=== PATIENT | male | born 1955 | race Caucasian/White ===

== ENCOUNTER 2021-09-27 22:57 | Inpatient (IN) | payer MEDICAID ==
[~2021-09-27] VITALS: Ht 180.3 cm; Wt 90.9 kg
[2021-09-27 23:43] LABS: BASOPHILS % (AUTO) 0.4 % (0-1); EOSINOPHILS % (AUTO) 0.1 % (0-6); HEMATOCRIT 45.4 % (42.0-52.0); HEMOGLOBIN 14.3 g/dl (14.0-17.9); LYMPHOCYTES # (AUTO) 0.5 X10'3 (1.1-4.8); MEAN CORPUSCULAR HEMOGLOBIN 28.6 PG (27.0-31.0); MEAN CORPUSCULAR HGB CONC 31.5 g/dL (33.0-36.5); MEAN CORPUSCULAR VOLUME 90.8 FL (78-98); MEAN PLATELET VOLUME 9.6 FL (7.4-10.4); MONOCYTES # (AUTO) 1.2 X10'3 (0-0.9); NEUTROPHILS % (AUTO) 82.5 % (42-75); PLATELET COUNT 194 X10'3 (140-440); RED CELL DISTRIBUTION WIDTH 17.4 % (11.5-14.5); WHITE BLOOD COUNT 9.7 X10'3 (4.5-11.0)
[2021-09-28 00:09] LABS: ALANINE AMINOTRANSFERASE 72 U/L (12-78); ALBUMIN/GLOBULIN RATIO 0.8 (1.1-1.5); ALKALINE PHOSPHATASE 129 IU/L (46-116); ANION GAP 12 (8-16); ASPARTATE AMINO TRANSFERASE 75 U/L (10-37); BILIRUBIN,DIRECT 0.8 MG/DL (0-0.3); BILIRUBIN,TOTAL 1.3 MG/DL (0.1-1.0); BLOOD UREA NITROGEN 58 MG/DL (7-18); CHLORIDE 100 MMOL/L (99-107); CREATININE 1.81 MG/DL (0.60-1.10); GLUCOSE 397 MG/DL (70-104); LIPASE < 50 U/L (73-393); POTASSIUM 5.4 MMOL/L (3.5-5.1); SODIUM 136 MMOL/L (135-145); TOTAL CARBON DIOXIDE 24.5 MMOL/L (24-32); eGFR 38 ML/MIN
[2021-09-28 00:15] LABS: CALCIUM 8.8 MG/DL (8.5-10.1)
[2021-09-28] MEDS ORDERED: cefepime 2g/NS 100ml ADVANTAGE 100 ML IV SCH (00:30)
[2021-09-28] MEDS ORDERED: normal saline 1000ml 1,000 ML IV ONE ×3 (00:30→01:45)
[2021-09-28] MEDS ORDERED: iohexol 300mg/ml 100ml inj. ONE (00:34)
[2021-09-28] MEDS ORDERED: vancomycin/NS 1 GM ADD-VANTAGE 250 ML IV ONE (00:35)
[2021-09-28] MEDS ORDERED: LIDOcaine 2% 10ml TOPICAL JELLY (Urojet) MM ONE (01:15)
[2021-09-28] MEDS ORDERED: furosemide 10 MG/1 ML 10ml inj IV ONE (01:45)
[2021-09-28] MEDS ORDERED: albuterol 2.5 MG/3 ML nebule NEB ONE (01:50)
[2021-09-28] MEDS ORDERED: aspirin 325mg tablet PO ONE (01:50)
--- NOTE | 2021-09-28 03:27 | NUR ---
Patient yelling and screaming that he want the rails down on his gurney, I have explained that is not safe as he already fell out of bed at home and couldn't get up. I advised him we would get him a hospital bed so he could be more comfortably and he demanded to speak with the supervisor [employer]. I had Suzy Yung seferino him.
[2021-09-28 03:28] LABS: CLARITY,URINE SLIGHTLY CLOUDY (Clear); GLUCOSE, URINE NEGATIVE (Neg); KETONES,URINE NEGATIVE (Neg); LEUKOCYTE ESTERASE ,URINE NEGATIVE (Neg); NITRITES, URINE NEGATIVE (Neg); OCCULT BLOOD,URINE MODERATE (Neg); PROTEIN,URINE NEGATIVE (Neg); UROBILINOGEN,URINE 0.2 E.U/dL (0.2-1.0)
[2021-09-28 03:43] LABS: COLOR,URINE STRAW (Yellow); UA COLLECTION TYPE FOLEY CATH
[2021-09-28 03:44] LABS: WBC,URINE 0-4 /HPF (0-4)
[2021-09-28 03:45] LABS: BACTERIA,URINE FEW /HPF (Neg); MUCUS STRANDS FEW /LPF (Neg); SQUAMOUS EPITHELIAL CELL,UR FEW /LPF (FEW)
[2021-09-28] MEDS ORDERED: magnesium 2GM in 50ml NS 50 ML IV PRN (04:00)
[2021-09-28] MEDS ORDERED: potassium CL 10mEq/100ml bag 100 ML IV PRN (04:00)
[2021-09-28] MEDS ORDERED: glucagon, human recombinant 1mg kit SUBCUT PRN (04:00)
[2021-09-28] MEDS ORDERED: dextrose 50%-water 50ml dispensing syringe IV PRN ×2 (04:00)
[2021-09-28] MEDS ORDERED: acetaminophen 325mg tablet PO PRN (04:00)
[2021-09-28] MEDS ORDERED: PERFLUTREN PROTEIN-A MICROSPHR (Optison) 0.22 MG/ML 3ML VIAL IV PRN (04:00)
[2021-09-28] MEDS ORDERED: dextrose ORAL solution 15 GM/59 ML bottle PO PRN ×2 (04:00)
[2021-09-28] MEDS ORDERED: magnesium 4gm in 100ml NS 100 ML IV PRN (04:00)
[2021-09-28] MEDS ORDERED: magnesium Cl slow-release 64mg tablet PO PRN (04:00)
[2021-09-28] MEDS ORDERED: mag hydrox/Alum hydrox/simeth 30ml oral suspension PO PRN (04:00)
[2021-09-28] MEDS ORDERED: potassium Cl 20 mEq SR tablet PO PRN ×2 (04:00)
[2021-09-28] MEDS ORDERED: MESSAGE TO PHARMACY PO ONE (04:00)
[2021-09-28] MEDS ORDERED: ondansetron/PF 4mg/2ml inj IV PRN (04:00)
[2021-09-28] MEDS ORDERED: magnesium hydroxide 30ml (MOM) UD suspension PO PRN (04:00)
[2021-09-28 05:15] LABS: HEMOGLOBIN A1C 8.7 % (4.5-6.2)
[2021-09-28 05:22] LABS: MAGNESIUM 2.1 MG/DL (1.5-2.4); POTASSIUM 4.8 MMOL/L (3.5-5.1)
--- NOTE | 2021-09-28 06:37 | NUR ---
patient received in a hospital bed awake,on a venturi mask.We will monitor.
[2021-09-28] MEDS: docusate sod 100mg capsule PO SCH ×2 (08:00→20:03)
[2021-09-28] MEDS: K and/or MAG REPLACEMENT MC SCH ×2 (08:00→19:55)
--- NOTE | 2021-09-28 08:30 | NUR ---
paitent repositoned in bed.
[2021-09-28] MEDS: cephalexin 250mg capsule PO SCH ×4 (08:46→20:15)
[2021-09-28] MEDS: carvedilol 6.25mg tablet PO SCH ×2 (08:47→20:03)
[2021-09-28] MEDS: heparin, porcine 5000 units/ml vial SQ SCH ×2 (08:48→20:07)
--- NOTE | 2021-09-28 09:00 | NUR ---
patient assisted with breakfast, HOB elevated.
[2021-09-28] MEDS: bumetanide 0.25mg/ml 4ml vial IV SCH (09:06)
--- NOTE | 2021-09-28 09:20 | NUR ---
placed patient on a nc 5L.
--- NOTE | 2021-09-28 09:34 | NUR ---
patient eating breakfast.tolerating 5Lnc sating 97%.
--- NOTE | 2021-09-28 09:44 | NUR ---
RN noted patient's cannula off,instructed not to take it off sating 80's.
--- NOTE | 2021-09-28 10:08 | NUR ---
Harriet/kemi called [phone].
[2021-09-28] MEDS: insulin Lispro (HumaLOG) vial - multi-dose SQ SCH ×2 (10:19→19:32)
--- NOTE | 2021-09-28 10:21 | NUR ---
echo at bedside, saturation 97% on 5 L nc.Instructed not to take off cannula.
--- NOTE | 2021-09-28 10:33 | NUR ---
1700ml yellow urine out from spence cath.call light within reach.
[2021-09-28] MEDS ORDERED: PIOG30TA71 PO (11:11)
[2021-09-28] MEDS ORDERED: LISI5TAB22 PO (11:11)
[2021-09-28] MEDS ORDERED: INSU100I31 SQ (11:11)
[2021-09-28] MEDS ORDERED: METF-1203 PO (11:11)
[2021-09-28] MEDS ORDERED: ZAR2.5T PO (11:11)
[2021-09-28] MEDS ORDERED: CARV6.253 PO (11:11)
[2021-09-28 11:45] VITALS: BP 119/81
[2021-09-28 15:00] VITALS: BP 111/84
--- NOTE | 2021-09-28 18:31 | NUR ---
Problems reprioritized. Patient report given, questions answered & plan of care reviewed with CAROLE LEON.
[2021-09-28 20:00] VITALS: BP 114/62
[2021-09-28] MEDS ORDERED: carvedilol 6.25mg tablet PO SCH (20:00)
[2021-09-28] MEDS: lactobacillus rhamnosus 10,000 MMU CELLS/CAPSULE PO SCH (20:03)
[2021-09-28 22:00] VITALS: BP 128/90
[2021-09-29] VITALS (12 sets, daily range): BP systolic 94–131; BP diastolic 62–94
[2021-09-29] MEDS ORDERED: furosemide 40mg/4ml inj IV ONE (01:20)
[2021-09-29] MEDS ORDERED: furosemide 40mg/4ml inj ONE (01:29)
[2021-09-29] MEDS ORDERED: LORazepam 2 mg/ml vial IV ONE (01:50)
[2021-09-29] MEDS: morphine 2 MG/ML inj. syringe IV PRN ×2 (02:19→10:38)
[2021-09-29 02:40] LABS: BASOPHILS % (AUTO) 0.5 % (0-1); EOSINOPHILS # (AUTO) 0.1 X10'3 (0-0.9); EOSINOPHILS % (AUTO) 0.9 % (0-6); HEMATOCRIT 44.3 % (42.0-52.0); HEMOGLOBIN 14.1 g/dl (14.0-17.9); LYMPHOCYTES # (AUTO) 0.8 X10'3 (1.1-4.8); LYMPHOCYTES % (AUTO) 8.2 % (21-51); MEAN CORPUSCULAR HEMOGLOBIN 28.8 PG (27.0-31.0); MEAN CORPUSCULAR HGB CONC 31.9 g/dL (33.0-36.5); MEAN CORPUSCULAR VOLUME 90.3 FL (78-98); MEAN PLATELET VOLUME 9.8 FL (7.4-10.4); MONOCYTES # (AUTO) 1.3 X10'3 (0-0.9); NEUTROPHILS # (AUTO) 7.5 X10'3 (1.8-7.7); NEUTROPHILS % (AUTO) 77.4 % (42-75); PLATELET COUNT 146 X10'3 (140-440); RED CELL DISTRIBUTION WIDTH 16.9 % (11.5-14.5); WHITE BLOOD COUNT 9.7 X10'3 (4.5-11.0)
[2021-09-29 02:55] LABS: ALANINE AMINOTRANSFERASE 67 U/L (12-78); ALBUMIN 2.7 G/DL (3.4-5.0); ALBUMIN/GLOBULIN RATIO 0.7 (1.1-1.5); ALKALINE PHOSPHATASE 102 IU/L (46-116); ANION GAP 11 (8-16); ASPARTATE AMINO TRANSFERASE 60 U/L (10-37); BLOOD UREA NITROGEN 64 MG/DL (7-18); CALCIUM 8.4 MG/DL (8.5-10.1); CHLORIDE 105 MMOL/L (99-107); GLUCOSE 120 MG/DL (70-104); SODIUM 141 MMOL/L (135-145); TOTAL CARBON DIOXIDE 25.2 MMOL/L (24-32); TOTAL PROTEIN 6.6 G/DL (6.4-8.2); eGFR 44 ML/MIN
--- NOTE | 2021-09-29 03:01 | NUR ---
Patient yelling out loud complaining of scrotol pain .Patient assesed and found to have a increasingly large scrotum that looks like it's about to rupture.Vital signs stable.Dr Faith was called and eventually came to the floor and ordered lasix 40 Meq Iv in which patient recieved at 01:30 am.Patient bladder was palpated and was found to be full but unable to void and uncomfortable. The ICU charge nurse was called and assessed patient with orders given for stat labs and spoke with DR. Faith about ordering urology consult.According to Dr. Faith give Morphine 2mg iv now and repeat in 4 hours. Patient recieved first dose of morphine at 02:19. Patient is being monitored q15 minutes.
[2021-09-29 03:02] LABS: MAGNESIUM 2.1 MG/DL (1.5-2.4); POTASSIUM 5.4 MMOL/L (3.5-5.1)
[2021-09-29 05:47] LABS: ABG BASE EXCESS -3.2 mmol/L (-2.0-2.0); ABG HCO3 21.3 mmol/L (22.0-26.0); ABG OXYGEN SATURATION 99.9 % (94-97); ABG PCO2 (T) 34.3 mmHg (35.0-48.0); ABG PO2 (T) 502.8 mmHg (75.0-100.0); ALLEN'S TEST POSITIVE; FCOHb 0.9 % (0.0-3.9); FMetHb 0.3 % (0.0-1.5); FO2Hb 98.7 % (94-97); PATIENT TEMPERATURE 35.5; TOTAL HEMOGLOBIN 14.6 G/dl (14.0-18.0)
--- NOTE | 2021-09-29 06:47 | NUR ---
Problems reprioritized. Patient report given, questions answered & plan of care reviewed with
[2021-09-29] MEDS: K and/or MAG REPLACEMENT MC SCH ×2 (08:00→20:00)
[2021-09-29] MEDS: docusate sod 100mg capsule PO SCH ×2 (08:00→20:00)
[2021-09-29] MEDS: mineral oil/petrolatum, white cream 113gm jar TP SCH (08:00)
[2021-09-29] MEDS ORDERED: metolazone 2.5mg tablet PO SCH (08:00)
--- NOTE | 2021-09-29 10:03 | NUR ---
PAGER ID: [phone] MESSAGE: Room 309. Rashi Monroe. Pt's niece that works here is in the room and would like to talk to you. Pt wants to leave. Please assist. Thanks, Terri [phone]
[2021-09-29] MEDS: bumetanide 0.25mg/ml 4ml vial IV SCH ×2 (10:37→20:55)
[2021-09-29] MEDS: heparin, porcine 5000 units/ml vial SQ SCH ×2 (10:43→20:50)
[2021-09-29] MEDS: lisinopril 5mg tablet PO SCH (10:44)
[2021-09-29] MEDS: carvedilol 6.25mg tablet PO SCH ×2 (10:44→20:53)
[2021-09-29] MEDS: lactobacillus rhamnosus 10,000 MMU CELLS/CAPSULE PO SCH ×2 (10:46→20:53)
--- NOTE | 2021-09-29 11:23 | NUR ---
Diabetes consult: Noted A1C 8.7 upon assessment pt appeared to be in pain/distress w/ RN at bedside. Written DM education w/ RD contact info placed in pt chart Addendum: 09/29/21 at [address] Amended: Links added.
[2021-09-29] MEDS: cephalexin 500mg capsule PO SCH ×3 (14:52→20:53)
[2021-09-29] MEDS: insulin Lispro (HumaLOG) vial - multi-dose SQ SCH ×2 (14:57→19:18)
[2021-09-29] MEDS: DOBUTamine 2000 MCG/250ML BAG IV SCH (15:39)
--- NOTE | 2021-09-29 18:39 | NUR ---
Problems reprioritized. Patient report given, questions answered & plan of care reviewed with CAROLE Montgomery.
[2021-09-29] MEDS ORDERED: sodium polystyrene sulfonate 15gm/60ml oral suspension PO ONE (21:25)
[2021-09-30] VITALS (10 sets, daily range): BP systolic 101–125; BP diastolic 58–86
[2021-09-30 06:36] LABS: BASOPHILS % (AUTO) 0.4 % (0-1); EOSINOPHILS # (AUTO) 0.1 X10'3 (0-0.9); EOSINOPHILS % (AUTO) 1.2 % (0-6); HEMATOCRIT 40.9 % (42.0-52.0); HEMOGLOBIN 13.3 g/dl (14.0-17.9); LYMPHOCYTES # (AUTO) 0.7 X10'3 (1.1-4.8); LYMPHOCYTES % (AUTO) 9.2 % (21-51); MEAN CORPUSCULAR HEMOGLOBIN 28.8 PG (27.0-31.0); MEAN CORPUSCULAR HGB CONC 32.4 g/dL (33.0-36.5); MEAN PLATELET VOLUME 9.1 FL (7.4-10.4); MONOCYTES # (AUTO) 0.7 X10'3 (0-0.9); MONOCYTES % (AUTO) 10.1 % (2-12); NEUTROPHILS # (AUTO) 5.7 X10'3 (1.8-7.7); NEUTROPHILS % (AUTO) 79.1 % (42-75); PLATELET COUNT 157 X10'3 (140-440); RED CELL DISTRIBUTION WIDTH 16.7 % (11.5-14.5); WHITE BLOOD COUNT 7.2 X10'3 (4.5-11.0)
[2021-09-30 06:57] LABS: ALANINE AMINOTRANSFERASE 51 U/L (12-78); ALBUMIN 2.3 G/DL (3.4-5.0); ALBUMIN/GLOBULIN RATIO 0.7 (1.1-1.5); ALKALINE PHOSPHATASE 91 IU/L (46-116); ANION GAP 9 (8-16); ASPARTATE AMINO TRANSFERASE 47 U/L (10-37); BILIRUBIN,TOTAL 0.9 MG/DL (0.1-1.0); BLOOD UREA NITROGEN 64 MG/DL (7-18); BUN/CREATININE RATIO 45.4 (5.4-32.0); CHLORIDE 107 MMOL/L (99-107); CREATININE 1.41 MG/DL (0.60-1.10); GLUCOSE 87 MG/DL (70-104); POTASSIUM 3.9 MMOL/L (3.5-5.1); SODIUM 142 MMOL/L (135-145); TOTAL CARBON DIOXIDE 25.7 MMOL/L (24-32); TOTAL PROTEIN 5.8 G/DL (6.4-8.2); eGFR 51 ML/MIN
--- NOTE | 2021-09-30 07:23 | NUR ---
PAGER ID: [phone] MESSAGE: Room 309. Rashi Monroe. Please come sign pts PICC consent. Thanks, Terri [phone]
[2021-09-30] MEDS: K and/or MAG REPLACEMENT MC SCH ×2 (08:00→19:23)
[2021-09-30] MEDS: docusate sod 100mg capsule PO SCH ×2 (08:00→20:44)
[2021-09-30] MEDS: heparin, porcine 5000 units/ml vial SQ SCH ×2 (08:36→21:06)
[2021-09-30] MEDS: bumetanide 0.25mg/ml 4ml vial IV SCH ×2 (08:36→19:21)
[2021-09-30] MEDS: mineral oil/petrolatum, white cream 113gm jar TP SCH (08:36)
[2021-09-30] MEDS: cephalexin 500mg capsule PO SCH ×4 (08:37→21:06)
[2021-09-30] MEDS: metolazone 2.5mg tablet PO SCH (08:37)
[2021-09-30] MEDS: carvedilol 6.25mg tablet PO SCH ×2 (08:37→20:00)
[2021-09-30] MEDS: lactobacillus rhamnosus 10,000 MMU CELLS/CAPSULE PO SCH ×2 (08:37→20:44)
[2021-09-30] MEDS: lisinopril 5mg tablet PO SCH (08:37)
[2021-09-30] MEDS: insulin Lispro (HumaLOG) vial - multi-dose SQ SCH ×2 (08:50→14:15)
[2021-09-30] MEDS: morphine 2 MG/ML inj. syringe IV PRN (14:11)
--- NOTE | 2021-09-30 17:29 | NUR ---
Order from Dr Vasquez 2L FR, arterial ultrasound with segmental pressures, B/A ratio, Venous ultrasound for DVT. CRN entered orders.
--- NOTE | 2021-09-30 17:55 | NUR ---
reposition throughout shift Pt repositions self. He is able to make his needs be known. Call light and personal belongings within reach.
--- NOTE | 2021-09-30 18:38 | NUR ---
Problems reprioritized. Patient report given, questions answered & plan of care reviewed with CAROLE Spaulding.
--- NOTE | 2021-09-30 19:00 | NUR ---
Patient in room MED 309. I have received report from KAYLAN LAM and had the opportunity to ask questions and assume patient care.
--- NOTE | 2021-09-30 19:09 | NUR ---
pATIENT FELL, FOUND DOWN BY PRIMARY RN, VS -HR 66, O2 100, RR 17, BP 119/75, PATIENT REPORTS HITTING BACK OF HEAD, PAIN 8/10 REPORTED BY PATIENT. PRIMARY RN NOTE TO FOLLOW, CALLING MD FOR FURTHER ORDERS. MIKHAIL LAM Addendum: 09/30/21 at 1928 by Chelly Watkins RN DISREGARD, INCORRECT PATIENT. MIKHAIL LAM
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
[2021-10-01] VITALS (12 sets, daily range): BP systolic 117–152; BP diastolic 60–99
[2021-10-01] MEDS ORDERED: diphenhydrAMINE 50 mg/ml inj IV PRN (01:25)
--- NOTE | 2021-10-01 02:00 | NUR ---
[ATIENT PULLED TELE MONITOR OFF-WENT TO REPLACE, FOUND PATIENT TUGGING AT PICC DRESSING-NO DAMAGE TO PICC-OBTAINED ORDER FOR RESTRAINTS. PATIENT CONTINUES TO PULL ON LINES, IN SLEEP AND WHILE AWAKE-ACUTE CONFUSION, MD ORDER FOR RESTRAINTS PLACED TO MAINTAIN IV PICC/PATIENT HAS DOBUTAMINE RUNNING. MIKHAIL
[2021-10-01] MEDS ORDERED: morphine 2 MG/ML inj. syringe IV PRN ×2 (02:55→11:30)
[2021-10-01] MEDS ORDERED: LORazepam 2 mg/ml vial IV PRN (04:45)
[2021-10-01 05:21] LABS: BASOPHILS % (AUTO) 0.2 % (0-1); EOSINOPHILS # (AUTO) 0.1 X10'3 (0-0.9); EOSINOPHILS % (AUTO) 1.2 % (0-6); HEMATOCRIT 40.9 % (42.0-52.0); HEMOGLOBIN 13.3 g/dl (14.0-17.9); LYMPHOCYTES # (AUTO) 0.6 X10'3 (1.1-4.8); LYMPHOCYTES % (AUTO) 7.4 % (21-51); MEAN CORPUSCULAR HEMOGLOBIN 28.8 PG (27.0-31.0); MEAN CORPUSCULAR HGB CONC 32.6 g/dL (33.0-36.5); MEAN CORPUSCULAR VOLUME 88.4 FL (78-98); MEAN PLATELET VOLUME 9.2 FL (7.4-10.4); MONOCYTES # (AUTO) 0.8 X10'3 (0-0.9); MONOCYTES % (AUTO) 10.5 % (2-12); NEUTROPHILS % (AUTO) 80.7 % (42-75); PLATELET COUNT 164 X10'3 (140-440); RED BLOOD COUNT 4.63 X10'6 (4.70-6.10); RED CELL DISTRIBUTION WIDTH 16.7 % (11.5-14.5); WHITE BLOOD COUNT 7.4 X10'3 (4.5-11.0)
[2021-10-01 05:27] LABS: ALANINE AMINOTRANSFERASE 52 U/L (12-78); ALBUMIN 2.3 G/DL (3.4-5.0); ALBUMIN/GLOBULIN RATIO 0.6 (1.1-1.5); ALKALINE PHOSPHATASE 109 IU/L (46-116); ANION GAP 7 (8-16); ASPARTATE AMINO TRANSFERASE 47 U/L (10-37); BILIRUBIN,TOTAL 0.8 MG/DL (0.1-1.0); BLOOD UREA NITROGEN 61 MG/DL (7-18); BUN/CREATININE RATIO 38.9 (5.4-32.0); CALCIUM 7.9 MG/DL (8.5-10.1); CHLORIDE 104 MMOL/L (99-107); CREATININE 1.57 MG/DL (0.60-1.10); GLUCOSE 295 MG/DL (70-104); POTASSIUM 3.7 MMOL/L (3.5-5.1); SODIUM 141 MMOL/L (135-145); TOTAL CARBON DIOXIDE 30.3 MMOL/L (24-32); TOTAL PROTEIN 5.9 G/DL (6.4-8.2); eGFR 45 ML/MIN
--- NOTE | 2021-10-01 06:11 | NUR ---
CRITICAL K 6.4-BARGAN ORDERED REPLACEMENT PROTOCOL FOR POTASSIUM; SEE EMAR
--- NOTE | 2021-10-01 06:12 | NUR ---
Problems reprioritized. Patient report given, questions answered & plan of care reviewed with Zelalem LAM.
[2021-10-01] MEDS: K and/or MAG REPLACEMENT MC SCH ×2 (08:00→19:22)
[2021-10-01] MEDS: lactobacillus rhamnosus 10,000 MMU CELLS/CAPSULE PO SCH ×2 (08:00→19:17)
[2021-10-01] MEDS: cephalexin 500mg capsule PO SCH ×4 (08:00→19:17)
[2021-10-01] MEDS: lisinopril 5mg tablet PO SCH (08:00)
[2021-10-01] MEDS: mineral oil/petrolatum, white cream 113gm jar TP SCH (08:00)
[2021-10-01] MEDS: metolazone 2.5mg tablet PO SCH (08:00)
[2021-10-01] MEDS: docusate sod 100mg capsule PO SCH ×2 (08:00→19:22)
[2021-10-01] MEDS: carvedilol 6.25mg tablet PO SCH ×3 (08:00→19:17)
[2021-10-01] MEDS ORDERED: haloperidol lactate 5mg/ml inj IM ONE (08:05)
[2021-10-01] MEDS ORDERED: morphine 2 MG/ML inj. syringe IV ONE (09:50)
--- NOTE | 2021-10-01 10:02 | NUR ---
Family is in the room with the patient. Restraint are off.
[2021-10-01] MEDS: heparin, porcine 5000 units/ml vial SQ SCH ×2 (10:23→19:10)
[2021-10-01] MEDS: bumetanide 0.25mg/ml 4ml vial IV SCH ×2 (10:24→19:18)
[2021-10-01] MEDS ORDERED: insulin Lispro (HumaLOG) vial - multi-dose SQ ONE (10:30)
[2021-10-01 10:55] LABS: ABG HCO3 27.8 mmol/L (22.0-26.0); ABG OXYGEN SATURATION 88.4 % (94-97); ABG PCO2 (T) 43.2 mmHg (35.0-48.0); ABG PO2 (T) 53.4 mmHg (75.0-100.0); ALLEN'S TEST POSITIVE; FCOHb 1.3 % (0.0-3.9); FLOW 3 L/min; FMetHb 0.2 % (0.0-1.5); FO2Hb 87.1 % (94-97); TOTAL HEMOGLOBIN 14.9 G/dl (14.0-18.0)
--- NOTE | 2021-10-01 11:19 | NUR ---
Sister and krunal in room with patient. Dr Abad in room as well. Both famioly members DO NOT want Bipap anymore. They do want morphine for pain if needed. Dr Abad educated on both issues as it contraindicates what both Dr Abad and Dr Vasquez has ordered. They both verbalized understanding and still wants what they want. Nesherie and sister both wants to be called EVERYTIME that something happens regardless of the time. Jenniffer reinterated needing Bipap at [facility] - both refused. Pt is still trashing and mumbling. They took the restraints off and are holding his hands. Order for sitter received.
[2021-10-01] MEDS: insulin Lispro (HumaLOG) vial - multi-dose SQ SCH ×2 (14:15→19:13)
[2021-10-01] MEDS: DOBUTamine 2000 MCG/250ML BAG IV SCH (14:56)
--- NOTE | 2021-10-01 17:00 | NUR ---
Pt ate all of his lunch around 1630 when he came to, 1700 blood sugar check was done after he ate his late lunch.
--- NOTE | 2021-10-01 17:11 | NUR ---
Pt has been trashing and grunting out loud all day. He started out with restraints and when the family got here we took them off per their request. They have stayed in the room all day with him. About 1600 today he came out of his confused state and is now lucid. He is hungry and thirsty and wants to eat and figure out what the family is going to do about his "bad episodes". I was able to give him his 1700 keflex po. Pt is refusing tele leads and he will use his nasal cannula when he feels like it regardless of what his O2 says. He pulled all leads and O2 monitoring off. Pt is refusing. Pt and family has been educated on above multiple times - they all verbalized understanding.
--- NOTE | 2021-10-01 17:40 | NUR ---
Per Dr Vasquez - alejandra 0800 coreg now ([id number]). do not need to delay pm coreg.
--- NOTE | 2021-10-01 17:56 | NUR ---
Patient in room MED 309. I have received report from KAYLAN LAM and had the opportunity to ask questions and assume patient care.
--- NOTE | 2021-10-01 18:00 | NUR ---
reposition throughout shift Pt has been moving around all shift. Family has been in the room since 1000. Call light and personal belongings within reach.
--- NOTE | 2021-10-01 19:09 | NUR ---
During day shift Dr Abad entered a [facility] nursing note stating NOT to give any sedating medication - she then entered a 1mg morphine for severe pain only. She advised only to give when the pt is in severe pain.
--- NOTE | 2021-10-01 19:15 | NUR ---
Since the patient is awake now the family want to hold off on comfort care.
--- NOTE | 2021-10-01 19:15 | NUR ---
Problems reprioritized. Patient report given, questions answered & plan of care reviewed with CAROLE Spaulding.
[2021-10-01] MEDS: insulin glargine (Lantus) pen - multi-dose SQ SCH (21:46)
[2021-10-02] VITALS (10 sets, daily range): BP systolic 91–147; BP diastolic 55–90
--- NOTE | 2021-10-02 06:04 | NUR ---
Problems reprioritized. Patient report given, questions answered & plan of care reviewed with KITA LAM.
--- NOTE | 2021-10-02 06:06 | NUR ---
Problems reprioritized. Patient report given, questions answered & plan of care reviewed with Summer LAM.
--- NOTE | 2021-10-02 07:00 | NUR ---
Patient in room MED 309. I have received report from CAROLE HONEYCUTT, and had the opportunity to ask questions and assume patient care.
[2021-10-02 07:08] LABS: BASOPHILS % (AUTO) 0.3 % (0-1); EOSINOPHILS # (AUTO) 0.1 X10'3 (0-0.9); EOSINOPHILS % (AUTO) 1.1 % (0-6); HEMATOCRIT 41.1 % (42.0-52.0); HEMOGLOBIN 13.5 g/dl (14.0-17.9); LYMPHOCYTES # (AUTO) 0.5 X10'3 (1.1-4.8); LYMPHOCYTES % (AUTO) 6.4 % (21-51); MEAN CORPUSCULAR HEMOGLOBIN 28.6 PG (27.0-31.0); MEAN CORPUSCULAR HGB CONC 32.8 g/dL (33.0-36.5); MEAN CORPUSCULAR VOLUME 87.3 FL (78-98); MONOCYTES # (AUTO) 0.9 X10'3 (0-0.9); MONOCYTES % (AUTO) 11.8 % (2-12); NEUTROPHILS # (AUTO) 6.3 X10'3 (1.8-7.7); NEUTROPHILS % (AUTO) 80.4 % (42-75); PLATELET COUNT 167 X10'3 (140-440); RED BLOOD COUNT 4.71 X10'6 (4.70-6.10); RED CELL DISTRIBUTION WIDTH 16.9 % (11.5-14.5); WHITE BLOOD COUNT 7.9 X10'3 (4.5-11.0)
[2021-10-02 07:11] LABS: ALANINE AMINOTRANSFERASE 45 U/L (12-78); ALBUMIN 2.4 G/DL (3.4-5.0); ALBUMIN/GLOBULIN RATIO 0.7 (1.1-1.5); ALKALINE PHOSPHATASE 82 IU/L (46-116); ANION GAP 7 (8-16); ASPARTATE AMINO TRANSFERASE 56 U/L (10-37); BLOOD UREA NITROGEN 47 MG/DL (7-18); BUN/CREATININE RATIO 44.3 (5.4-32.0); CHLORIDE 99 MMOL/L (99-107); CREATININE 1.06 MG/DL (0.60-1.10); SODIUM 139 MMOL/L (135-145); eGFR 70 ML/MIN
[2021-10-02 07:13] LABS: GLUCOSE 48 MG/DL (70-104)
--- NOTE | 2021-10-02 07:16 | NUR ---
PAGE SENT PAGER ID: [phone] MESSAGE: 309, TREV KENNEDY, CRITICAL LABS: BLOOD GLUCOSE-48, K-3.0. THANK YOU, KITA [id number]
[2021-10-02] MEDS: K and/or MAG REPLACEMENT MC SCH ×3 (08:00→20:00)
[2021-10-02] MEDS: mineral oil/petrolatum, white cream 113gm jar TP SCH (08:00)
[2021-10-02] MEDS: docusate sod 100mg capsule PO SCH ×2 (08:00→18:49)
[2021-10-02] MEDS: bumetanide 0.25mg/ml 4ml vial IV SCH ×2 (09:41→18:40)
[2021-10-02] MEDS: metolazone 2.5mg tablet PO SCH (09:48)
[2021-10-02] MEDS: carvedilol 6.25mg tablet PO SCH ×2 (09:49→18:46)
[2021-10-02] MEDS: lisinopril 5mg tablet PO SCH (09:52)
[2021-10-02] MEDS: lactobacillus rhamnosus 10,000 MMU CELLS/CAPSULE PO SCH ×2 (09:52→20:00)
[2021-10-02] MEDS: cephalexin 500mg capsule PO SCH ×4 (09:53→18:39)
[2021-10-02] MEDS: heparin, porcine 5000 units/ml vial SQ SCH ×2 (09:56→18:46)
[2021-10-02] MEDS: insulin Lispro (HumaLOG) vial - multi-dose SQ SCH ×3 (10:05→18:39)
--- NOTE | 2021-10-02 14:03 | NUR ---
PAGE SENT PAGER ID: [phone] MESSAGE: 309, TREV KENNEDY, NO PRN K REPLACEMENT. PT'S K - 3. ORDERS PLEASE? THANK YOU, KITA
--- NOTE | 2021-10-02 16:02 | NUR ---
PAGE SENT PAGER ID: [phone] MESSAGE: 309, TREV KENNEDY, PT'S POTASSIUM IS 3 AND HE DOESN'T HAVE ANY K REPLACEMENT. MAY WE HAVE A PRN K? THANK YOU, KITA Kilgore [phone].
[2021-10-02] MEDS ORDERED: potassium Cl 20 mEq SR tablet PO PRN ×2 (16:05)
[2021-10-02] MEDS ORDERED: magnesium Cl slow-release 64mg tablet PO PRN (16:05)
[2021-10-02] MEDS ORDERED: magnesium 4gm in 100ml NS 100 ML IV PRN (16:05)
[2021-10-02] MEDS ORDERED: potassium CL 10mEq/100ml bag 100 ML IV PRN (16:05)
[2021-10-02] MEDS ORDERED: magnesium 2GM in 50ml NS 50 ML IV PRN (16:05)
--- NOTE | 2021-10-02 18:20 | NUR ---
Patient in room MED 309. I have received report from KITA LAM and had the opportunity to ask questions and assume patient care.
--- NOTE | 2021-10-02 18:28 | NUR ---
Problems reprioritized. Patient report given, questions answered & plan of care reviewed with CAROLE HONEYCUTT.
[2021-10-02] MEDS: insulin glargine (Lantus) pen - multi-dose SQ SCH (21:14)
[2021-10-03] VITALS: BP 103/56
[2021-10-03 02:00] VITALS: BP 94/64
[2021-10-03 03:25] LABS: BASOPHILS % (AUTO) 0.5 % (0-1); EOSINOPHILS # (AUTO) 0.2 X10'3 (0-0.9); EOSINOPHILS % (AUTO) 2.1 % (0-6); HEMATOCRIT 39.5 % (42.0-52.0); HEMOGLOBIN 12.7 g/dl (14.0-17.9); LYMPHOCYTES # (AUTO) 0.6 X10'3 (1.1-4.8); LYMPHOCYTES % (AUTO) 7.4 % (21-51); MEAN CORPUSCULAR HGB CONC 32.1 g/dL (33.0-36.5); MEAN CORPUSCULAR VOLUME 87.3 FL (78-98); MONOCYTES # (AUTO) 1.1 X10'3 (0-0.9); MONOCYTES % (AUTO) 14.4 % (2-12); NEUTROPHILS % (AUTO) 75.6 % (42-75); PLATELET COUNT 154 X10'3 (140-440); RED BLOOD COUNT 4.52 X10'6 (4.70-6.10); RED CELL DISTRIBUTION WIDTH 16.5 % (11.5-14.5); WHITE BLOOD COUNT 7.9 X10'3 (4.5-11.0)
[2021-10-03 03:52] LABS: ALANINE AMINOTRANSFERASE 44 U/L (12-78); ALBUMIN 2.2 G/DL (3.4-5.0); ALBUMIN/GLOBULIN RATIO 0.7 (1.1-1.5); ALKALINE PHOSPHATASE 98 IU/L (46-116); ANION GAP 6 (8-16); ASPARTATE AMINO TRANSFERASE 48 U/L (10-37); BILIRUBIN,TOTAL 0.7 MG/DL (0.1-1.0); BLOOD UREA NITROGEN 46 MG/DL (7-18); BUN/CREATININE RATIO 36.8 (5.4-32.0); CALCIUM 7.8 MG/DL (8.5-10.1); CHLORIDE 96 MMOL/L (99-107); CREATININE 1.25 MG/DL (0.60-1.10); GLUCOSE 178 MG/DL (70-104); POTASSIUM 3.7 MMOL/L (3.5-5.1); SODIUM 139 MMOL/L (135-145); TOTAL CARBON DIOXIDE 36.6 MMOL/L (24-32); TOTAL PROTEIN 5.5 G/DL (6.4-8.2); eGFR 58 ML/MIN
[2021-10-03 04:00] VITALS: BP 112/61
--- NOTE | 2021-10-03 05:24 | NUR ---
Problems reprioritized. Patient report given, questions answered & plan of care reviewed with BRIAN LAM.
--- NOTE | 2021-10-03 05:30 | NUR ---
Patient in room PCU 3023. I have received report from Chelly LAM and had the opportunity to ask questions and assume patient care.
--- NOTE | 2021-10-03 05:55 | NUR ---
Pt. arrived to room 3023C in bed fr/ACCE. Oriented to room, attendant, and surroundings. Pt is alert and appropriate. Dobutamine infusing as ordered. This nurse agrees w/assessment performed by ACCE RNChelly.
[2021-10-03 06:00] VITALS: BP 98/57
--- NOTE | 2021-10-03 07:33 | NUR ---
Problems reprioritized. Patient report given, questions answered & plan of care reviewed with Juan LAM.
[2021-10-03] MEDS: metolazone 2.5mg tablet PO SCH (08:00)
[2021-10-03] MEDS: K and/or MAG REPLACEMENT MC SCH (08:00)
[2021-10-03] MEDS: lactobacillus rhamnosus 10,000 MMU CELLS/CAPSULE PO SCH (08:55)
[2021-10-03] MEDS: carvedilol 6.25mg tablet PO SCH (08:55)
[2021-10-03] MEDS: docusate sod 100mg capsule PO SCH (08:55)
[2021-10-03] MEDS: lisinopril 5mg tablet PO SCH (08:55)
[2021-10-03] MEDS: heparin, porcine 5000 units/ml vial SQ SCH (08:56)
[2021-10-03] MEDS: cephalexin 500mg capsule PO SCH ×3 (08:56→16:25)
[2021-10-03] MEDS: bumetanide 0.25mg/ml 4ml vial IV SCH (08:56)
[2021-10-03] MEDS: DOBUTamine 2000 MCG/250ML BAG IV SCH (08:57)
[2021-10-03] MEDS: mineral oil/petrolatum, white cream 113gm jar TP SCH (09:20)
--- NOTE | 2021-10-03 10:48 | NUR ---
Initial: Pt admitted s/p multiple falls and acute on chronic systolic congestive heart failure w/ anasarca per EMR. Pt noted to be confused A&O x 1 and needs feeder. Per WOC, multiple full thickness wounds to R arm and BLE. Pt currently on CCHO diet w/ mostly 100% intake of meals which meets approximately 93% of est energy needs and 100% of est protein needs. Pt may still benefit from [employer] BID to assist w/ wound healing. LBM 09/30 receiving routine colace. Will continue to monitor. Recs: 1. Continue CCHO diet as tolerated 2. [employer] BIDBD; pending MD verification 3. Bowel care per rx 4. Scaled wt this admit, subsequent weekly wts Addendum: 10/03/21 at [address] Amended: Links added.
[2021-10-03 11:00] VITALS: BP 100/60
[2021-10-03 15:00] VITALS: BP 107/70
[2021-10-03] MEDS: insulin Lispro (HumaLOG) vial - multi-dose SQ SCH (15:03)
--- NOTE | 2021-10-03 17:24 | NUR ---
Patient will be leaving AMA. Paged Dr. Franco about the patient's decsion to leave AMA.
[2021-10-03] MEDS ORDERED: CARV6.253 PO (18:14)
[2021-10-03] MEDS ORDERED: ZAR2.5T PO (18:14)
[2021-10-03] MEDS ORDERED: AMOX-422 PO (18:14)
[2021-10-03] MEDS ORDERED: LISI5TAB22 PO (18:14)
[2021-10-03] MEDS ORDERED: FURO20TA4 PO (18:15)
--- NOTE | 2021-10-03 19:15 | NUR ---
Patient left the facility AMA with his belongings in care of some family members, Dr. Faith and charge nurse notified
== END 2021-10-03 19:20 | disposition left against medical advice (07) | DRG 720 ==
LOC: ER 22:58 → ED HOLD 09-28 03:59 → MED 3N 09-28 11:53 → PCU 3S 10-03 06:07
PROVIDERS: ADMIT Internal Medicine; ATTEND Internal Medicine
PROC: 5A09357 Assistance with Respiratory Ventilation, Less than 24 Consecutive Hours, Continuous Positive Airway Pressure (ICD-10-PCS; principal; 2021-09-29)
PROC: 5A0935A Assistance with Respiratory Ventilation, Less than 24 Consecutive Hours, High Flow/Velocity Cannula (ICD-10-PCS; 2021-09-29)
DX: A41.9 Sepsis, unspecified organism (principal); J96.91 Respiratory failure, unspecified with hypoxia; G93.40 Encephalopathy, unspecified; I50.23 Acute on chronic systolic (congestive) heart failure; I42.9 Cardiomyopathy, unspecified; Z66 Do not resuscitate; E11.65 Type 2 diabetes mellitus with hyperglycemia; E87.5 Hyperkalemia; F60.9 Personality disorder, unspecified; Z53.29 Procedure and treatment not carried out because of patient's decision for other reasons; G47.33 Obstructive sleep apnea (adult) (pediatric); W06.XXXA Fall from bed, initial encounter; E11.22 Type 2 diabetes mellitus with diabetic chronic kidney disease; N18.30 Chronic kidney disease, stage 3 unspecified; L03.116 Cellulitis of left lower limb; L03.115 Cellulitis of right lower limb; I13.0 Hypertensive heart and chronic kidney disease with heart failure and stage 1 through stage 4 chronic kidney disease, or unspecified chronic kidney disease; I48.91 Unspecified atrial fibrillation; I50.82 Biventricular heart failure; I50.84 End stage heart failure; J44.9 Chronic obstructive pulmonary disease, unspecified; N28.9 Disorder of kidney and ureter, unspecified; N50.89 Other specified disorders of the male genital organs; Z87.891 Personal history of nicotine dependence; Z91.14 Patient's other noncompliance with medication regimen; Z91.19 Patient's noncompliance with other medical treatment and regimen; Z91.81 History of falling; Y93.89 Activity, other specified; Y92.098 Other place in other non-institutional residence as the place of occurrence of the external cause; Y99.8 Other external cause status
CPT/HCPCS: 36415; 36573; 36600; 71045; 74176; 80048; 80053; 80076; 81001; 82803; 82948; 83036; 83605; 83690; 83735; 83880; 84132; 84443; 84484; 85018; 85025; 87040; 87081; 93005; 93306; 93925; 93970; 94640; 94660; 94760; 97110; 97161; 97530; 99291; 99292; G0378; J0692; J1250; J1630; J1644; J1815; J1940; J2060; J2270; J3370; J3490; J7030; Q9967